=== PATIENT | female | born 1995 | race Caucasian/White ===

== ENCOUNTER 2018-04-22 15:39 | Emergency (ER) | payer SELFPAY ==
[~2018-04-22] VITALS: Ht 180.3 cm; Wt 100.0 kg
[2018-04-22 15:47] VITALS: BP 130/78; TEMP 98.9
[2018-04-22] MEDS ORDERED: NORCO 325 MG-51 TAB PO (16:24)
[2018-04-22] MEDS ORDERED: LIDODERM 5% PATC1 EA TP (16:24)
[2018-04-22] MEDS ORDERED: FLEXERIL 1010 MG/TAB PO (16:24)
[2018-04-22 16:43] VITALS: PULSE 84
== END 2018-04-22 16:44 | disposition home or self-care (01) ==
LOC: COL.ER 15:39
DX: S39.012A Strain of muscle, fascia and tendon of lower back, initial encounter (principal); X50.0XXA Overexertion from strenuous movement or load, initial encounter
CPT/HCPCS: J1885